=== PATIENT | male | born 1980 | race Two or more races ===

== ENCOUNTER 2018-01-10 20:32 | Emergency (ER) | payer MEDICAID ==
[~2018-01-10] VITALS: Ht 190.5 cm; Wt 136.1 kg
[2018-01-10] MEDS ORDERED: NKM (20:41)
[2018-01-10 20:44] VITALS: BP 132/78
[2018-01-10] MEDS ORDERED: BACTRIM DS TAB1 EAC1 ORAL (21:11)
[2018-01-10] MEDS ORDERED: CEPHALEXIN500 MG ORAL (21:13)
[2018-01-10] MEDS ORDERED: Bacitracin Oint UD TOPIC ONE (21:15)
[2018-01-10] MEDS ORDERED: Tetanus/Diptheria/Pertussis Vaccine 0.5ml Syr IM ONE (21:15)
[2018-01-10 21:47] VITALS: BP 132/78
--- NOTE | 2018-01-10 21:50 | Emergency Room Report ---
History of Present Illness General Chief Complaint: Skin Rash/Abscess Source: Patient Present Illness HPI mr. Nicoel is a pleasant healthy 37 yo male who presents with 4 months of rash on lower legs. rash began when he scraped lower leg on left with ray metal gate. Then rash would spread on lower leg and now on right leg. Small area of rash on arm and chin. Rash would improve but enjoys scratching the area which irritates the process. Allergies: Coded Allergies: No Known Allergies (Unverified , 01/10/18) Nursing Documentation-[facility] Past Medical History: No Stated History Review of Systems Constitutional: Denies: fever, malaise Respiratory: Denies: cough Cardiovascular: Denies: chest pain Skin: Reports: rash, change in color Physical Exam Vital Signs Date Time Temp Pulse Resp B/P (MAP) Pulse Ox O2 Delivery O2 Flow Rate FiO2 01/10/18 20:37 98.6 110 18 132/78 95 Room Air 98.6 Sp02 EP Interpretation: reviewed, normal General Appearance: normal inspection, well appearing, no apparent distress, alert, GCS 15 Head: normocephalic, atraumatic Eyes: bilateral eye normal inspection Neck: normal inspection, full range of motion Respiratory: no respiratory distress Musculoskeletal: gait/station normal Neurologic: normal inspection, alert, oriented x3 Psychiatric: normal inspection, judgement/insight normal, memory normal, mood/ affect normal Skin: rash - extensive patchy papular rash with excoriations anterior lower legs bilaterally, small papules on right arm and right chin, abrasions Medical Decision Making Diagnostic Impression: Primary Impression: Rash and other nonspecific skin eruption ER Course dx: cellulitis rx: bactrim, keflex, antibiotic ointment OTC recommended wound dressing Last Vital Signs Date Time Temp Pulse Resp B/P (MAP) Pulse Ox O2 Delivery O2 Flow Rate FiO2 01/10/18 20:44 98.6 18 132/78 95 Room Air 98.6 01/10/18 20:37 110 Disposition: HOME, SELF-CARE Condition: Stable Scripts Cephalexin* (KEFLEX*) 500 Mg Capsule 500 MG ORAL EVERY 6 HOURS for 10 Days, #40 CAP Prov: SAWYER GEORGE 01/10/18 Trimethoprim/Sulfamethoxazole 160/800* (BACTRIM DS TABLET*) 1 Each Tablet 1 TAB ORAL Q12H for 10 Days, #20 TAB 0 Refills Prov: SAWYER GEORGE 01/10/18 Referrals: NON PHYSICIAN (PCP) Patient Instructions: Rash, Cellulitis, Lrnu-on-Dusz SAWYER GEORGE Jan 10, 2018 21:50
== END 2018-01-10 21:30 | disposition home or self-care (01) ==
LOC: EMR 21:15
DX: L03.116 Cellulitis of left lower limb (principal); L03.115 Cellulitis of right lower limb; Z23 Encounter for immunization; R21 Rash and other nonspecific skin eruption
CPT/HCPCS: 90471; 90715; 99283

== ENCOUNTER 2018-01-17 19:44 | Emergency (ER) | payer MEDICAID ==
[~2018-01-17] VITALS: Ht 188 cm; Wt 131.5 kg
[~2018-01-17 19:44] MED LIST: BACTRIM DS TAB1 EAC1 ORAL; CEPHALEXIN500 MG ORAL; NKM
[2018-01-17] MEDS ORDERED: Solu-MEDROL 125mg Inj IVP ONE (20:00)
[2018-01-17] MEDS ORDERED: DiphenhydrAMINE 50mg/ml Inj IVP ONE (20:00)
[2018-01-17 20:35] LABS: APPEARANCE,URINE SLIGHTLY CLOUDY; BILIRUBIN, URINE 2+ (NEGATIVE); GLUCOSE, URINE (UA) NEGATIVE (NEGATIVE); KETONES,URINE 1+ (NEGATIVE); LEUKOCYTE ESTERASE ,URINE 1+ (NEGATIVE); NITRITE,URINE POSITIVE (NEGATIVE); PH,URINE 6 (4.5-8.0); PROTEIN,URINE 2+ (NEGATIVE); UROBILINOGEN,URINE 12 MG/DL (0.0-1.0)
[2018-01-17 20:37] LABS: COLOR,URINE AMBER
[2018-01-17 20:38] LABS: BASOPHILS % (AUTO) 1.3 % (0.0-2.0); EOSINOPHILS % (AUTO) 8.8 % (0.0-3.0); HEMATOCRIT 49.7 % (42.0-52.0); HEMOGLOBIN 16.8 G/DL (14.2-18.0); LYMPHOCYTES % (AUTO) 21.3 % (20.0-45.0); MEAN CORPUSCULAR VOLUME 85 FL (80-99); MONOCYTES % (AUTO) 10.4 % (1.0-10.0); NEUTROPHILS % (AUTO) 58.3 % (45.0-75.0); PLATELET COUNT 247 K/UL (150-450); RED BLOOD COUNT 5.84 M/UL (4.70-6.10); RED CELL DISTRIBUTION WIDTH 12.4 % (11.6-14.8); WHITE BLOOD COUNT 6.8 K/UL (4.8-10.8)
[2018-01-17 20:52] LABS: ANION GAP 9 mmol/L (5-15); BLOOD UREA NITROGEN 10 mg/dL (7-18); CALCIUM 9.3 MG/DL (8.5-10.1); CARBON DIOXIDE 27 MMOL/L (21-32); CHLORIDE 102 MMOL/L (98-107); CREATININE 0.9 MG/DL (0.55-1.30); SODIUM 137 MMOL/L (136-145)
--- NOTE | 2018-01-17 20:57 | Emergency Room Report ---
History of Present Illness General Chief Complaint: Skin Rash/Abscess Source: Patient Present Illness HPI 37-year-old male presents ED for evaluation of rash. States that he sustained an injury while approximate one week ago where garage door hit him on the legs. Patient came to ER that day with bleeding at the leg site. Some bruising and discoloration. Was subsequently treated and discharged with prescriptions for Keflex and Bactrim. States he completed a prescription states that he's been noticing a rash to his arms and legs and face. States it is very itchy. Denies any known food or drug allergies. Patient states that he's been also expressing diarrhea for the last 6 weeks. States symptoms started shortly after completing a prescription for antibiotics for a tooth infection. Denies any fevers or chills. Denies any recent travel. Patient states he did have a rapid HIV test done a few months ago which was negative. No other aggravating relieving factors. Denies any other associated symptoms Allergies: Coded Allergies: No Known Allergies (Unverified , 01/10/18) Patient History Past Medical History: none Past Surgical History: none Pertinent Family History: none Social History: Denies: smoking, alcohol use, drug use Immunizations: UTD Reviewed Nursing Documentation: PMH: Agreed; PSxH: Agreed Nursing Documentation-PMH Past Medical History: No Stated History Review of Systems All Other Systems: negative except mentioned in HPI Physical Exam Vital Signs Date Time Temp Pulse Resp B/P (MAP) Pulse Ox O2 Delivery O2 Flow Rate FiO2 01/17/18 19:47 98.0 88 16 136/94 98 Room Air 98.1 Sp02 EP Interpretation: reviewed, normal General Appearance: no apparent distress, alert, GCS 15, non-toxic Head: normocephalic, atraumatic Eyes: bilateral eye normal inspection, bilateral eye PERRL ENT: hearing grossly normal, normal pharynx, no angioedema, normal voice Neck: full range of motion, supple/symm/no masses Respiratory: chest non-tender, lungs clear, normal breath sounds, speaking full sentences Cardiovascular #1: regular rate, rhythm, no edema Cardiovascular #2: 2+ carotid (R), 2+ carotid (L), 2+ radial (R), 2+ radial (L) , 2+ dorsalis pedis (R), 2+ dorsalis pedis (L) Gastrointestinal: normal bowel sounds, non tender, soft, non-distended, no guarding, no rebound Rectal: deferred Genitourinary: normal inspection, no CVA tenderness Musculoskeletal: back normal, gait/station normal, normal range of motion, non- tender Neurologic: alert, oriented x3, responsive, motor strength/tone normal, sensory intact, speech normal Psychiatric: judgement/insight normal, memory normal, mood/affect normal, no suicidal/homicidal ideation Reflexes: 3+ bicep (R), 3+ bicep (L), 3+ tricep (R), 3+ tricep (L), 3+ knee (R) , 3+ knee (L) Skin: warm/dry, well hydrated, other - healing wounds to bilateral LEs. discoloration noted. papular rash noted to arms, legs and face Lymphatic: no adenopathy Medical Decision Making Diagnostic Impression: Primary Impression: Rash and other nonspecific skin eruption Additional Impression: Diarrhea Qualified Codes: R19.7 - Diarrhea, unspecified pending Last Vital Signs Date Time Temp Pulse Resp B/P (MAP) Pulse Ox O2 Delivery O2 Flow Rate FiO2 01/17/18 19:47 98.0 88 16 136/94 98 Room Air 98.1 Signed Out To: Dr Jeong Referrals: NOT CHOSEN IPA/,REFERRING (PCP) Fredi Callahan MD Jan 17, 2018 20:57
[2018-01-17 21:03] LABS: ALANINE AMINOTRANSFERASE 152 U/L (12-78); ALBUMIN 4.1 G/DL (3.4-5.0); ALKALINE PHOSPHATASE 73 U/L (46-116); ASPARTATE AMINO TRANSFERASE 144 U/L (15-37); BILIRUBIN,TOTAL 1.6 MG/DL (0.2-1.0)
[2018-01-17 21:05] LABS: BILIRUBIN,DIRECT 0.4 MG/DL (0.0-0.3); CKMB 1.6 NG/ML (0.0-3.6)
--- NOTE | 2018-01-17 21:39 | Emergency Room Report ---
Physical Exam Vital Signs Date Time Temp Pulse Resp B/P (MAP) Pulse Ox O2 Delivery O2 Flow Rate FiO2 01/17/18 19:47 98.0 88 16 136/94 98 Room Air 98.1 Medical Decision Making Diagnostic Impression: Primary Impression: Allergic Additional Impression: Rash and other nonspecific skin eruption ER Course Requested by prior MD to dispo patient. Pt. with good vital signs, fine rash on extremities, was on Bactrim/Keflex. Probable allergic reaction. Question of diarrhea for several weeks and advised to f/u with PMD if he has concerns about that. He did not have a bm while in ED. No fever, no travel. Last Vital Signs Date Time Temp Pulse Resp B/P (MAP) Pulse Ox O2 Delivery O2 Flow Rate FiO2 01/17/18 19:47 98.0 88 16 136/94 98 Room Air 98.1 Disposition: HOME, SELF-CARE Condition: Stable Yung Jeong M.D. Jan 17, 2018 21:39
[2018-01-17 21:59] VITALS: BP 126/85
[2018-01-17 22:01] VITALS: BP 126/85
== END 2018-01-17 22:03 | disposition home or self-care (01) ==
LOC: EMR 20:03
DX: T78.40XA Allergy, unspecified, initial encounter (principal); X58.XXXA Exposure to other specified factors, initial encounter; Y92.9 Unspecified place or not applicable; R21 Rash and other nonspecific skin eruption
CPT/HCPCS: 36415; 80053; 80307; 81003; 82248; 82550; 82553; 83605; 85025; 86703; 96361; 96374; 96375; 99284; J1200; J2930

== ENCOUNTER 2018-04-11 17:04 | Emergency (ER) | payer MEDICAID ==
[~2018-04-11] VITALS: Ht 190.5 cm; Wt 130.6 kg
[2018-04-11 17:15] VITALS: BP 130/83
[2018-04-11] MEDS ORDERED: BACTROBAN15 GM TOPIC (17:29)
--- NOTE | 2018-04-11 17:29 | Emergency Room Report ---
History of Present Illness General Chief Complaint: Wound Recheck/Suture Removal Source: Patient Present Illness HPI 37-year-old male with no significant past medical history here for suture removal post sebaceous cyst drainage and sutures 1 month ago. He has total of 3 sutures wound has completely healed, denies fever or chills, denies pus drainage. Denies pain at the incision site. Denies tingling and numbness, shortness of breath, chest pain, palpitation all other associated patient mentions that he did appointment 2 weeks after the incision and drainage however he had to go out of state. denies pain Allergies: Coded Allergies: CEPHALOSPORINS (Verified Allergy, Unknown, 04/11/18) SULFAMETHOXAZOLE (Verified Allergy, Unknown, 04/11/18) TRIMETHOPRIM (Verified Allergy, Unknown, 04/11/18) Patient History Past Medical History: see triage record Past Surgical History: none Immunizations: UTD Reviewed Nursing Documentation: PMH: Agreed; PSxH: Agreed Nursing Documentation-PMH Past Medical History: No Stated History Review of Systems All Other Systems: negative except mentioned in HPI Physical Exam Vital Signs Date Time Temp Pulse Resp B/P (MAP) Pulse Ox O2 Delivery O2 Flow Rate FiO2 04/11/18 17:07 98.1 97 16 130/83 96 Room Air Sp02 EP Interpretation: reviewed, normal General Appearance: normal inspection, well appearing, no apparent distress, alert Head: normocephalic Eyes: bilateral eye normal inspection, bilateral eye PERRL ENT: normal ENT inspection, hearing grossly normal, normal pharynx, normal voice Neck: full range of motion, supple Respiratory: normal inspection, chest non-tender, lungs clear, normal breath sounds, no respiratory distress Cardiovascular #1: normal inspection, regular rate, rhythm, no edema, no murmur Gastrointestinal: normal inspection, soft Rectal: deferred Genitourinary: deferred Musculoskeletal: digits/nails normal, other - healed wound and 3 sutures lumbar spine Neurologic: normal inspection, alert, oriented x3, responsive Psychiatric: normal inspection, judgement/insight normal, memory normal Skin: warm/dry, palpation normal, well hydrated, normal turgor, other - healed wound lumbar spine, 3 sutures, no pus drainage, no edema/no erythema Lymphatic: normal inspection, no adenopathy Procedures Laceration/Wound Repair Laceration/Wound Repair : Consent: Verbal Wound Location: back Wound's Depth, Shape: superficial Wound Length (cm): 1 Wound Explored: clean Progress 3 sutures were removed, bacitiricn was applied Medical Decision Making PA Attestation all diagnoses and treatment are reviewed and discussed with my supervising physician Dr. Davila Diagnostic Impression: Primary Impression: Encounter for removal of sutures Additional Impression: Sebaceous cyst ER Course 37-year-old male with no significant past medical history here for suture removal post sebaceous cyst drainage and sutures 1 month ago. He has total of 3 sutures wound has completely healed, denies fever or chills, denies pus drainage. Denies pain at the incision site. Denies tingling and numbness, shortness of breath, chest pain, palpitation all other associated patient mentions that he did appointment 2 weeks after the incision and drainage however he had to go out of state. denies pain Ddx considered but are not limited to suture removal, infected wound, keloid Vital signs: are WNL, pt. is afebrile H&PE are most consistent with suture removal post sebacous cyst I and D ORDERS: bacitricin, bactroban cream ED INTERVENTIONS: suture removal and wound clean DISCHARGE: At this time pt. is stable for d/c to home. Will provide printed patient care instructions, and any necessary prescriptions. Care plan and follow up instructions have been discussed with the patient prior to discharge. Last Vital Signs Date Time Temp Pulse Resp B/P (MAP) Pulse Ox O2 Delivery O2 Flow Rate FiO2 04/11/18 17:15 98.0 97 16 130/83 96 Room Air Disposition: HOME, SELF-CARE Condition: Stable Scripts Mupirocin (BACTROBAN CR) 15 Gm Cream..g. 1 APPLIC TOPIC THREE TIMES A DAY, #15 GM Prov: Albaro Maddox 04/11/18 Patient Instructions: Wound Check Additional Instructions: apply Bactroban cream as directed, avoid scrubbing over the healed wound Albaro Maddox Apr 11, 2018 17:29
[2018-04-11] MEDS ORDERED: Bacitracin Oint UD TOPIC ONE (17:30)
[2018-04-11 17:35] VITALS: BP 125/80
== END 2018-04-11 17:32 | disposition home or self-care (01) ==
LOC: EMR 17:11
DX: Z48.00 Encounter for change or removal of nonsurgical wound dressing (principal); L72.3 Sebaceous cyst; Z88.1 Allergy status to other antibiotic agents; Z88.2 Allergy status to sulfonamides; Z88.3 Allergy status to other anti-infective agents; F17.200 Nicotine dependence, unspecified, uncomplicated
CPT/HCPCS: 99283

== ENCOUNTER 2018-07-05 13:11 | Emergency (ER) | payer MEDICAID ==
[~2018-07-05] VITALS: Ht 190.5 cm; Wt 127.0 kg
[~2018-07-05 13:11] MED LIST changes: +BACTROBAN15 GM TOPIC
[2018-07-05 13:43] VITALS: BP 108/71
--- NOTE | 2018-07-05 13:44 | Emergency Room Report ---
History of Present Illness General Chief Complaint: Flu Like Symptoms Source: Patient Present Illness HPI 37-year-old male with no significant past medical history is here c/o three days of body ache, fever and chills, sore throat, cough with wheezing. Patient has been taking dbct-qzh-[id number] medication and Tylenol with minimal relief. Denies chest pain, shortness of breath, palpitations, abdominal pain nausea vomiting. Patient is currently taking Truvada prophylactically as he is sexually active at morning and one partner. Allergies: Coded Allergies: CEPHALOSPORINS (Verified Allergy, Unknown, 04/11/18) SULFAMETHOXAZOLE (Verified Allergy, Unknown, 04/11/18) TRIMETHOPRIM (Verified Allergy, Unknown, 04/11/18) Patient History Past Medical History: see triage record Past Surgical History: unable to obtain Pertinent Family History: none Immunizations: UTD Reviewed Nursing Documentation: PMH: Agreed; PSxH: Agreed Nursing Documentation-PMH Past Medical History: No Stated History Review of Systems All Other Systems: negative except mentioned in HPI Physical Exam Vital Signs Date Time Temp Pulse Resp B/P (MAP) Pulse Ox O2 Delivery O2 Flow Rate FiO2 07/05/18 13:14 98.8 21 108/71 97 Room Air Sp02 EP Interpretation: reviewed, normal General Appearance: normal inspection, well appearing, no apparent distress, alert Head: normocephalic, atraumatic Eyes: bilateral eye normal inspection, bilateral eye PERRL ENT: normal pharynx, TMs + canals normal, uvula midline, nasal congestion, pharyngeal erythema Neck: normal inspection, full range of motion, supple Respiratory: normal inspection, lungs clear, wheezing Cardiovascular #1: normal inspection, regular rate, rhythm, no edema, no gallop , no murmur Gastrointestinal: normal inspection, non tender, soft Rectal: deferred Genitourinary: deferred Musculoskeletal: normal inspection, back normal, digits/nails normal Neurologic: normal inspection, alert, oriented x3 Psychiatric: normal inspection, judgement/insight normal, memory normal Skin: normal inspection, normal color, no rash, warm/dry Lymphatic: normal inspection, no adenopathy Medical Decision Making PA Attestation All diagnosis and treatment plans were reviewed and discussed with my supervising physician Dr. Callahan Diagnostic Impression: Primary Impression: Influenza-like symptoms Additional Impression: Wheezing ER Course 37-year-old male with no significant past medical history is here c/o three days of body ache, fever and chills, sore throat, cough with wheezing. Patient has been taking cxse-ryd-pcoqtod medication and Tylenol with minimal relief. Denies chest pain, shortness of breath, palpitations, abdominal pain nausea vomiting. Patient is currently taking Truvada prophylactically as he is sexually active at morning and one partner. Ddx considered but are not limited to infuelnza, viral URI, strep pharyngitis bronchitis Vital signs: are WNL, pt. is afebrile H&PE are most consistent with influenza and wheezing ORDERS: phenergen, flonase, ventolin ED INTERVENTIONS: None required at this time. DISCHARGE: At this time pt. is stable for d/c to home. Will provide printed patient care instructions, and any necessary prescriptions. Care plan and follow up instructions have been discussed with the patient prior to discharge. tamiful is passed the window Last Vital Signs Date Time Temp Pulse Resp B/P (MAP) Pulse Ox O2 Delivery O2 Flow Rate FiO2 07/05/18 13:14 98.8 21 108/71 97 Room Air Disposition: HOME, SELF-CARE Condition: Stable Scripts Albuterol Sulfate (VENTOLIN HFA) 18 Gm Hfa.aer.ad 2 PUFFS INH EVERY 6 HOURS, #18 GM 0 Refills Prov: Albaro Maddox 07/05/18 Fluticasone Propionate (Flonase Allergy Relief) 9.9 Ml [place].susp 2 PUFFS NS BID, #1 SPRAY Prov: Albaro Maddox 07/05/18 Promethazine Hcl (PROMETHAZINE HCL*) 6.25 Mg/5 Ml Syrup 5 ML ORAL Q6H, #120 ML 0 Refills Prov: Albaro Maddox 07/05/18 Referrals: NON PHYSICIAN (PCP) Patient Instructions: Upper Respiratory Infection, Adult, Zmqw-[id number] Albaro Maddox Jul 05, 2018 13:44
--- NOTE | 2018-07-05 13:44 | NUR ---
ED Nurse Note:pt. came with flu like symptoms for afeww days
[2018-07-05] MEDS ORDERED: PROMETHAZI6.25 MG/1 ORAL (13:45)
[2018-07-05] MEDS ORDERED: VENTOLIN HFA18 GM INH (13:45)
[2018-07-05] MEDS ORDERED: FLONASE ALLERG9.9 ML NS (13:45)
[2018-07-05 13:48] VITALS: BP 108/71
--- NOTE | 2018-07-05 13:50 | NUR ---
ED Nurse Note:pt. received d/c instructions with prescriptionsa ndleft ER with steady gait
== END 2018-07-05 13:50 | disposition home or self-care (01) ==
LOC: EMR 13:20
DX: J11.1 Influenza due to unidentified influenza virus with other respiratory manifestations (principal); R06.2 Wheezing; Z88.2 Allergy status to sulfonamides
CPT/HCPCS: 99282

== ENCOUNTER 2020-03-04 14:45 | Emergency (ER) | payer MEDICAID, OTHER ==
[~2020-03-04] VITALS: Ht 188 cm; Wt 145.1 kg
[~2020-03-04 14:45] MED LIST changes: +FLONASE ALLERG9.9 ML NS; +PROMETHAZI6.25 MG/1 ORAL; +VENTOLIN HFA18 GM INH
--- NOTE | 2020-03-04 14:56 | NUR ---
ED Nurse Note: ambulated into ED with c/o abd pain x30min. denies any N/V/D or denies any bloody stool. States drinking Vodka SHANKER OUT. Breathing normal/even/unlabored. Skin warm/dry. NAD noted. Denies taking any marijuana or any substance abuse.
[2020-03-04] MEDS ORDERED: Morphine Sulfate 2mg/ml Inj(IV/IM USE ONLY) IVP ONE ×3 (15:00→19:30)
[2020-03-04] MEDS ORDERED: Omnipaque-300 100ml vial INJ PRN (15:00)
--- NOTE | 2020-03-04 15:20 | Emergency Room Report ---
History of Present Illness General Chief Complaint: Abdominal Pain Source: Patient (Albaro Maddox) Present Illness HPI 39-year-old male with no significant past medical history here complaining of sudden onset of epigastric abdominal pain after drinking vodka. Reports that about a week ago he started taking amoxicillin and naproxen after tooth extraction. Patient also reports that lately has been more stress and been drinking more alcohol. Denies any nausea, vomiting, diarrhea, constipation, blood in stool. Denies any fever and chills, or any surgical history abdomen. Denies urinary symptoms. Denies recent travel. Denies cough and congestion, shortness of breath, and other associate symptoms. Denies marijuana smoke, drug use, however admits that he occasionally smokes tobacco. Patient rates the pain 10 out of 10 without any radiation, reports that he is an "alcoholic" and he has been drinking a lot of alcohol in the past few months. (Albaro Maddox) Allergies: Coded Allergies: CEPHALOSPORINS (Verified Allergy, Unknown, 04/11/18) SULFAMETHOXAZOLE (Verified Allergy, Unknown, 04/11/18) TRIMETHOPRIM (Verified Allergy, Unknown, 04/11/18) COVID-19 Screening Contact w/high risk pt: No Experienced COVID-19 symptoms?: No COVID-19 Testing performed ORTHOPEDICS TEACHER: No (Albaro Maddox) Patient History Past Surgical History: none Pertinent Family History: none Immunizations: UTD Reviewed Nursing Documentation: PMH: Agreed; PSxH: Agreed (Albaro Maddox) Nursing Documentation-PMH Past Medical History: No Stated History (Albaro Maddox) Review of Systems All Other Systems: negative except mentioned in HPI (Albaro Maddox) Physical Exam Vital Signs Date Time Temp Pulse Resp B/P (MAP) Pulse Ox O2 Delivery O2 Flow Rate FiO2 03/04/20 14:48 98.2 118 19 157/52 (87) 98 Room Air Sp02 EP Interpretation: reviewed, normal General Appearance: alert, GCS 15, non-toxic, mild distress Head: normocephalic, atraumatic Eyes: bilateral eye normal inspection, bilateral eye PERRL ENT: hearing grossly normal, normal pharynx, no angioedema, normal voice Neck: supple, no carotid bruits Respiratory: chest non-tender, lungs clear, normal breath sounds, no wheezing, speaking full sentences Cardiovascular #1: regular rate, rhythm, no edema Gastrointestinal: no bruit, non-distended, no hernia, no pulsatile mass, guard ing - epigastric Rectal: deferred Musculoskeletal: back normal, no calf tenderness Neurologic: alert, motor strength/tone normal, oriented x3, sensory intact, responsive, speech normal Psychiatric: judgement/insight normal, memory normal, mood/affect normal, no suicidal/homicidal ideation Skin: no rash Lymphatic: no adenopathy (Albaro Maddox) Medical Decision Making PA Attestation All my diagnosis and treatment plans were reviewed ad discussed with my supervising physician Dr. Davila (Albaro Maddox) Diagnostic Impression: Primary Impression: Acute pancreatitis ER Course 39-year-old male with no significant past medical history here complaining of sudden onset of epigastric abdominal pain after drinking vodka. Reports that about a week ago he started taking amoxicillin and naproxen after tooth extraction. Patient also reports that lately has been more stress and been drinking more alcohol. Denies any nausea, vomiting, diarrhea, constipation, blood in stool. Denies any fever and chills, or any surgical history abdomen. Denies urinary symptoms. Denies recent travel. Denies cough and congestion, shortness of breath, and other associate symptoms. Denies marijuana smoke, drug use, however admits that he occasionally smokes tobacco. Patient rates the pain 10 out of 10 without any radiation, reports that he is an "alcoholic" and he has been drinking a lot of alcohol in the past few months. Ddx considered but are not limited to: appendicitis, cholecystis, gastritis, gastroenteritis, UTI, pyelonephritis, SBO, diverticulitis, influenza with GI manifestation, LA, pancreatitis Vital signs: are WNL, pt. is afebrile H&PE are most consistent with: pancreatitis ORDERS: abdominal CT, abdominal pain set, EKG, abdominal US ED INTERVENTIONS: Morphine, Zofran, Pepcid, NS bolus Patient was admitted with diagnosis of acute pancreatitis to Dr. Cuevas at [facility] under supervision of : Giovanni pt stable at time of admission (Albaro Maddox) ER Course Patient was discussed with Dr. Victor who agreed to accept the patient as transfer to [facility]. (Heber Davila MD) EKG Diagnostic Results Rate: normal Rhythm: NSR ST Segments: no acute changes Other Impression No acute ST changes ASA given to the pt in ED: No (Albaro Maddox) CT/MRI/US Diagnostic Results CT/MRI/US Diagnostic Results #1: Imaging Test Ordered: CT abdomen pelvis with contrast Impression COMPARISON: Ultrasound abdomen of March 04, 2020 FINDINGS: Normal heart size. Bilateral lower lobe opacities demonstrated. Prominent pericardial fat. Enlarged liver with fatty changes. Spleen is unremarkable. Diffuse inflammation of the pancreas with edema and enlargement. Inflammation of the distal stomach and small bowel. Fluid-filled gallbladder demonstrated. Bilateral inguinal hernias containing fat. Underdistended urinary bladder. Degenerative changes of the spine. No free air or free fluid or bowel obstruction. No evidence of appendicitis. No aortic aneurysm appreciated. No lymphadenopathy appreciated. Small renal cyst in the right kidney. No acute fractures. IMPRESSION: Acute pancreatitis with diffuse inflammation of the pancreas and enlargement. No free air or abscess formation. Fatty changes of the liver demonstrated no definite biliary dilatation. Bilateral lower lobe atelectasis versus infiltrates. Adjacent inflammation of the stomach and duodenum. CT/MRI/US Diagnostic Results #2: Imaging Test Ordered: Abdominal ultrasound limited to epigastric and right upper quadrant Impression FINDINGS: The liver demonstrates increased echogenicity and measures 19.27 cm. The portal vein is patent with appropriate direction of flow. Common bile duct measures 0.57 cm The gallbladder demonstrates no abnormal wall thickening, pericholecystic free fluid, or shadowing echogenic foci. Visualized portions of the pancreas are within normal limits. Pancreatic duct is visible measuring 4.4 mm The spleen is normal in size and echogenicity. Spleen measures 11.09 cm The right kidney measures 12.52 cm in length. No contour deforming masses, hydronephrosis, or shadowing echogenic stones are identified. Renal cortical echogenicity is echogenicity. Right renal cyst demonstrated measuring 1.5 x 1.4 x 1.4 cm. The left kidney measures 13.17 cm in length. No contour deforming masses, hydronephrosis, or shadowing echogenic stones are identified. Renal cortical echogenicity is echogenicity. Visualized portions of the aorta and IVC are unremarkable. No free fluid is identified. IMPRESSION: No gallstones appreciated. Enlarged liver with fatty infiltration. Prominent common bile duct demonstrated at 5.7 mm. Mildly prominent pancreatic duct at 4.4 mm. Simple cyst in the right kidney. (Albaro Maddox) Last Vital Signs Date Time Temp Pulse Resp B/P (MAP) Pulse Ox O2 Delivery O2 Flow Rate FiO2 03/04/20 15:00 118 19 Room Air 03/04/20 14:48 98.2 157/52 (87) 98 (Albaro Maddox) Status: improved (Heber Davila MD) Disposition: SHORT-TERM HOSP Condition: Serious Albaro Maddox Mar 04, 2020 15:19 Heber Davila MD Mar 04, 2020 19:13
[2020-03-04 15:27] LABS: APPEARANCE,URINE CLEAR; BILIRUBIN, URINE NEGATIVE (NEGATIVE); COLOR,URINE AMBER; GLUCOSE, URINE (UA) NEGATIVE (NEGATIVE); KETONES,URINE NEGATIVE (NEGATIVE); LEUKOCYTE ESTERASE ,URINE NEGATIVE (NEGATIVE); NITRITE,URINE NEGATIVE (NEGATIVE); PH,URINE 6 (4.5-8.0); PROTEIN,URINE NEGATIVE (NEGATIVE); UROBILINOGEN,URINE NORMAL MG/DL (0.0-1.0)
[2020-03-04 15:29] LABS: BASOPHILS % (AUTO) 4.9 % (0.0-2.0); EOSINOPHILS % (AUTO) 1.6 % (0.0-3.0); HEMATOCRIT 52.4 % (42.0-52.0); LYMPHOCYTES % (AUTO) 28.8 % (20.0-45.0); MEAN CORPUSCULAR VOLUME 85 FL (80-99); NEUTROPHILS % (AUTO) 55.7 % (45.0-75.0); PLATELET COUNT 266 K/UL (150-450); RED BLOOD COUNT 6.18 M/UL (4.70-6.10); RED CELL DISTRIBUTION WIDTH 12.4 % (11.6-14.8); WHITE BLOOD COUNT 9.8 K/UL (4.8-10.8)
[2020-03-04 15:33] VITALS: BP 163/103
[2020-03-04 15:54] LABS: ANION GAP 12 mmol/L (5-15); BLOOD UREA NITROGEN 14 mg/dL (7-18); CALCIUM 8.7 MG/DL (8.5-10.1); CARBON DIOXIDE 25 MMOL/L (21-32); CHLORIDE 105 MMOL/L (98-107); CREATININE 0.9 MG/DL (0.55-1.30); POTASSIUM 3.7 MMOL/L (3.5-5.1); SODIUM 142 MMOL/L (136-145)
[2020-03-04 16:01] LABS: ALANINE AMINOTRANSFERASE 36 U/L (12-78); ALBUMIN 4.1 G/DL (3.4-5.0); ALBUMIN/GLOBULIN RATIO 1.1 (1.0-2.7); ALKALINE PHOSPHATASE 86 U/L (46-116); ASPARTATE AMINO TRANSFERASE 46 U/L (15-37); BILIRUBIN,TOTAL 0.3 MG/DL (0.2-1.0); CREATINE KINASE 63 U/L (26-308)
--- NOTE | 2020-03-04 16:38 | Diagnostic Imaging Report ---
US ABDOMEN LIMITED HISTORY: Pain Ultrasound abdomen complete INDICATION: Abdominal pain COMPARISON: None TECHNIQUE: Real-time sonographic evaluation of the abdomen is performed using grayscale and color flow. FINDINGS: The liver demonstrates increased echogenicity and measures 19. 27 cm. The portal vein is patent with appropriate direction of flow. Common bile duct measures 0.57 cm The gallbladder demonstrates no abnormal wall thickening, pericholecystic free fluid, or shadowing echogenic foci. Visualized portions of the pancreas are within normal limits. Pancreatic duct is visible measuring 4.4 mm The spleen is normal in size and echogenicity. Spleen measures 11.09 cm The right kidney measures 12.52 cm in length. No contour deforming masses, hydronephrosis, or shadowing echogenic stones are identified. Renal cortical echogenicity is echogenicity. Right renal cyst demonstrated measuring 1.5 x 1.4 x 1.4 cm. The left kidney measures 13.17 cm in length. No contour deforming masses, hydronephrosis, or shadowing echogenic stones are identified. Renal cortical echogenicity is echogenicity. Visualized portions of the aorta and IVC are unremarkable. No free fluid is identified. IMPRESSION: No gallstones appreciated. Enlarged liver with fatty infiltration. Prominent common bile duct demonstrated at 5.7 mm. Mildly prominent pancreatic duct at 4.4 mm. Simple cyst in the right kidney.
[2020-03-04 17:14] VITALS: BP 149/101
--- NOTE | 2020-03-04 17:23 | NUR ---
ED Nurse Note: Pt resting in gurney, A/Ox4. Breathing normal/even/unlabored. Skin warm/dry. NAD noted. Pt was informed of possible admission.
--- NOTE | 2020-03-04 17:34 | Diagnostic Imaging Report ---
CT ABDOMEN + PELVIS With Contrast HISTORY: Pain TECHNIQUE: One or more of the following dose reduction techniques were used: automated exposure control, adjustment of the mA and/or kV according to patient size, use of iterative reconstruction technique. One or more of the following dose reduction techniques were used: automated exposure control, adjustment of the mA and/or kV according to patient size, use of iterative reconstruction technique. Total Exam volume computed tomography dose index (CTDIvol) = mGy and Dose Length Product (DLP) = mGY-c COMPARISON: Ultrasound abdomen of March 04, 2020 FINDINGS: Normal heart size. Bilateral lower lobe opacities demonstrated. Prominent pericardial fat. Enlarged liver with fatty changes. Spleen is unremarkable. Diffuse inflammation of the pancreas with edema and enlargement. Inflammation of the distal stomach and small bowel. Fluid-filled gallbladder demonstrated. Bilateral inguinal hernias containing fat. Underdistended urinary bladder. Degenerative changes of the spine. No free air or free fluid or bowel obstruction. No evidence of appendicitis. No aortic aneurysm appreciated. No lymphadenopathy appreciated. Small renal cyst in the right kidney. No acute fractures. IMPRESSION: Acute pancreatitis with diffuse inflammation of the pancreas and enlargement. No free air or abscess formation. Fatty changes of the liver demonstrated no definite biliary dilatation. Bilateral lower lobe atelectasis versus infiltrates. Adjacent inflammation of the stomach and duodenum.
[2020-03-04] MEDS ORDERED: ACETAMINOPHEN120 MG PO (18:14)
[2020-03-04] MEDS ORDERED: NAPROXEN250 MG ORAL (18:14)
[2020-03-04] MEDS ORDERED: AMOXICILLI200 MG/5 M PO (18:14)
--- NOTE | 2020-03-04 18:21 | NUR ---
Pts info: Jason Cuevas [phone] Please call pts with pts transfer info
[2020-03-04 18:49] VITALS: BP 133/91
--- NOTE | 2020-03-04 19:07 | NUR ---
HAND-OFF: Report given to ALESSIA Patrick. NAD noted.
--- NOTE | 2020-03-04 19:17 | NUR ---
ED Nurse Note: Recieved report from ALESSIA Patrick to resume care, pt is in bed awake, alert and oriented x 4, pt is moaning and groaning in severe abdominal pain, pt is crying, pt IV line patent in left AC area, pt gowned and placed on monitoring, pt is being transferred to [facility] for continued care, no report given, placed call to ALESSIA Subramanian ac[employer] carpent[employer] supervisor at hospital for report, ambulance at bedside and report given also, along with transfer forms, pt being medicated again for pain and transferred via [facility].
[2020-03-04 19:20] VITALS: BP 133/91
--- NOTE | 2020-03-07 17:08 | Cardiology Report ---
APPROVED REPORT EKG Measurement Heart [id number] <Conclusion> Normal sinus rhythm Normal ECG
== END 2020-03-04 19:20 | disposition short-term general hospital (02) ==
LOC: EMR 14:50
DX: K85.90 Acute pancreatitis without necrosis or infection, unspecified (principal); N28.1 Cyst of kidney, acquired; K40.20 Bilateral inguinal hernia, without obstruction or gangrene, not specified as recurrent; K76.0 Fatty (change of) liver, not elsewhere classified; Z88.2 Allergy status to sulfonamides; Z88.8 Allergy status to other drugs, medicaments and biological substances
CPT/HCPCS: 36415; 74177; 76700; 80053; 80307; 81003; 82550; 83690; 84484; 85025; 85610; 85730; 93005; 96361; 96374; 96375; 96376; 99285; G0480; J2270; J2405; Q9965; S0028; U0002